=== PATIENT | male | born 2000 | race Caucasian/White ===

== ENCOUNTER 2022-11-07 14:33 | Emergency (ER) | payer MEDICAID, OTHER ==
[~2022-11-07] VITALS: Ht 172.7 cm; Wt 69.0 kg
[2022-11-07 16:14] VITALS: BP 111/75
[2022-11-07] MEDS ORDERED: IBUPROFEN 800 MG TAB PO ONE (16:45)
[2022-11-07] MEDS ORDERED: IBUP800T27 PO (16:49)
== END 2022-11-07 17:23 | disposition home or self-care (01) ==
LOC: ER 14:33
DX: S52.124A Nondisplaced fracture of head of right radius, initial encounter for closed fracture (principal); W01.0XXA Fall on same level from slipping, tripping and stumbling without subsequent striking against object, initial encounter; Y93.89 Activity, other specified; Y92.89 Other specified places as the place of occurrence of the external cause; Y99.8 Other external cause status
CPT/HCPCS: 29105; 73080